=== PATIENT | male | born 1975 | race Caucasian/White ===

== ENCOUNTER 2016-12-19 20:01 | Emergency (ER) | payer MEDICARE, OTHER ==
[~2016-12-19] VITALS: Ht 172.7 cm; Wt 75.0 kg
[~2016-12-19 20:01] MED LIST: BUSP10 PO; IBUP600T26 PO; NEUR600T PO; QUET200 PO
--- NOTE | 2016-12-19 20:09 | PD ---
Physical Exam Time Seen by Provider: 20:07 Narrative 41 y/o male here s/p meth use. Complains of feelings of weakness. He also requests psychiatric evaluation for suicidal thoughts. Seen at triage desk. Awaiting bed placement. [facility] Medical Record Reviewed: Yes Supervised Visit with FORREST: Florian Dickens Dec 19, 2016 20:09
[2016-12-19 20:23] VITALS: BP 121/79; PULSE 103; RESP 16; TEMP 98.7; O2SAT 97
[2016-12-19 20:45] LABS: AMPHETAMINE, URINE POS (NEG); BARBITURATES, URINE NEG (NEG); COCAINE, URINE NEG (NEG)
== END 2016-12-19 23:40 | disposition left against medical advice (07) ==
LOC: NED 20:01
DX: R45.851 Suicidal ideations (principal); R53.1 Weakness; F15.10 Other stimulant abuse, uncomplicated; Z53.21 Procedure and treatment not carried out due to patient leaving prior to being seen by health care provider
CPT/HCPCS: 80307; 99281

== ENCOUNTER 2016-12-21 19:18 | Emergency (ER) | payer MEDICARE ==
[2016-12-21 19:21] VITALS: BP 111/75; PULSE 98; RESP 18; TEMP 99.5; O2SAT 98
[2016-12-21 22:01] VITALS: BP 108/71; PULSE 84; RESP 18; O2SAT 97
[2016-12-21 22:03] VITALS: TEMP 98.9
--- NOTE | 2016-12-21 22:05 | PD ---
HPI Chief Complaint: Pain: Acute or Chronic Time Seen by Provider: 21:58 Travel History International Travel<30 days: No Contact w/Intl Traveler<30days: No Traveled to known affect area: No History of Present Illness HPI Patient comes emergency Department requesting surgical intervention for his chronic neck pain. Patient states that he had an MRI done 2 years ago and was told that he needed to have fusion on his neck. Patient refused this as he was scared of the surgery. Patient states he's been self-medicating but is wanting to get it fixed now or prescription for narcotic pain medication. Patient denies any fevers, loss change in bowel or bladder, chest pain, shortness of breath, numbness or tingling anywhere, headache, or fevers. Patient denies any change in his neck pain states he is just wanting to get it took care of now. Patient has pain is achy like in nature without radiation. PFSH Past Medical History Cancer: No Cardiovascular Problems: Yes Diabetes: No Diminished Hearing: No Endocrine: No Gastrointestinal Disorders: Yes Genitourinary: No Headaches: Yes (ONCE A WEEK) Hypertension: Yes Immune Disorder: No Musculoskeletal: Yes Neurologic: Yes Psychiatric: No Reproductive: No Respiratory: No Immunizations Current: No Seizures: Yes Thyroid Disease: No Past Surgical History Neurologic Surgery: Yes ("BRAIN SURGERY" 2012) Other Surgery: Yes (unable to aassess) Social History Alcohol Use: Yes (6PK BEER DAILY; NONE IN 10 DAYS) Tobacco Use: Yes (1 PPD) Substance Use: Yes (DILAUDID) Allergies-Medications (Allergen,Severity, Reaction): Coded Allergies: No Known Allergies (Unverified , 12/21/16) Reported Meds & Prescriptions Reported Meds & Active Scripts Active No Active Prescriptions or Reported Medications Review of Systems Except as stated in HPI: all other systems reviewed are Neg Physical Exam Narrative GENERAL: Well-developed, well nourished, in no acute distress, and non-ill appearing. SKIN: Focused skin assessment warm and dry. HEAD: Atraumatic. Normocephalic. EYES: Pupils equal and round. EOMI. No scleral icterus. No injection or drainage. ENT: No nasal bleeding or discharge. Mucous membranes pink and moist. NECK: Trachea midline. No tenderness or crepitus over midline cervical spine. Supple. No nuclear rigidity. CARDIOVASCULAR: Radial pulses 2+, intact, equal bilaterally. Capillary refill less than 2 seconds. RESPIRATORY: No accessory muscle use. No respiratory distress. MUSCULOSKELETAL: No obvious deformities. No clubbing. No cyanosis. No edema. Full range of motion. Shoulder:FROM equal BL with passive flexion, extension, Abduction, Adduction, internal/external rotation, and pronation/supination. Sensation equal BL deltoid muscles. Pulses equal BL distal to injury. Capillary refill less than 2 seconds distal to injury and equal BL. FROM distal to injury and equal BL. Strength distal to injury equal BL. NV intact distal to injury equal BL. Flexion and extension of thumb equal BL. Equal strength and movement with abduction/adductions of BL fingers. Branch Lending Manager strength equal BL. Normal gait. NEUROLOGICAL: Awake and alert. No obvious cranial nerve deficits. Motor grossly within normal limits. Normal speech. PSYCHIATRIC: Appropriate mood and affect; insight and judgment normal. Data Data Last Documented VS Vital Signs Date Time Temp Pulse Resp B/P Pulse Ox O2 Delivery O2 Flow Rate FiO2 12/21/16 22:03 98.9 12/21/16 22:01 84 18 108/71 97 Room Air MDM Medical Decision Making Medical Screen Exam Complete: Yes Emergency Medical Condition: No Differential Diagnosis Acute on chronic neck pain, drug-seeking, other Narrative Course The patient presented complaining of neck pain. There was no history of recent fall or trauma. There was no evidence to support atypical cardiac/angina as an etiology. There is also no evidence to suggest vascular pathology such as TAA or carotid dissection. No fevers or other evidence to suspect infectious processes, abscess, osteomyelitis etc. The patients neurological exam is normal with normal motor and sensory. There is no paresthesias nor motor deficits reported, or found and no bowel or bladder incontinence or retention. I suspect the pain is mechanical in nature. Clinical suspicion, plan of care and management was discussed with the patient. The patient was instructed to follow up with their health care provider. The patient was also instructed to return if the pain worsened, changed, or developed weakness or bowel or bladder trouble. The patient agreed with plan. Patient in no obvious distress upon re-evaluation. Any questions/concerns in reference to patient diagnosis/condition discussed and clarified prior to patient's discharge. Reinforced sheer importance of close follow up with patient 's primary physician or primary care clinic. Instructed patient to return to ED immediately, if symptoms return/worsen. Pt showed understanding of above instructions. Further instructions and recommendations were detailed in discharge paperwork. Pt ambulated without difficulty out of ED at discharge. Diagnosis Primary Impression: Chronic neck pain Referrals: Orthopaedic Surgeon Primary Care Physician Patient Instructions: Chronic Neck Pain (DC), General Instructions Additional Instructions: Follow-up with your primary care physician and/or orthopedic 3-5 days for reevaluation. Use [id number] Tylenol and/or ibuprofen as needed for pain. Follow instructions on the packaging. Return to the emergency department if symptoms get worse. Scripts No Active Prescriptions or Reported Meds Disposition: 01 DISCHARGE HOME Condition: Stable Hayden Chu Dec 21, 2016 22:05
== END 2016-12-21 22:16 | disposition home or self-care (01) ==
LOC: NEPD 19:18
DX: M54.2 Cervicalgia (principal); G89.29 Other chronic pain
CPT/HCPCS: 99282

== ENCOUNTER 2016-12-23 20:22 | Emergency (ER) | payer MEDICARE ==
[~2016-12-23] VITALS: Ht 172.7 cm; Wt 60.0 kg
[2016-12-23 20:28] VITALS: BP 108/72; PULSE 84; RESP 16; TEMP 98; O2SAT 98
--- NOTE | 2016-12-23 22:52 | PD ---
HPI Chief Complaint: Abdominal Pain Time Seen by Provider: 22:49 Travel History International Travel<30 days: No Contact w/Intl Traveler<30days: No Traveled to known affect area: No History of Present Illness HPI C/O ABD PAIN, DIFFUSE, CRAMPY/SHARP,4/10, NONRADIATING, ALSO DENIES N/V/D/ FEVER.... PFSH Past Medical History Cancer: No Cardiovascular Problems: Yes Diabetes: No Diminished Hearing: No Endocrine: No Gastrointestinal Disorders: Yes Genitourinary: No Headaches: Yes (ONCE A WEEK) Hypertension: Yes Immune Disorder: No Musculoskeletal: Yes Neurologic: Yes Psychiatric: No Reproductive: No Respiratory: No Immunizations Current: No Seizures: Yes Thyroid Disease: No Past Surgical History Neurologic Surgery: Yes ("BRAIN SURGERY" 2012) Social History Alcohol Use: Yes (6PK BEER DAILY) Tobacco Use: Yes (1 PPD) Substance Use: Yes (hx of DILAUDID) Allergies-Medications (Allergen,Severity, Reaction): Coded Allergies: No Known Allergies (Unverified , 12/23/16) Reported Meds & Prescriptions Reported Meds & Active Scripts Active Zofran Odt (Ondansetron Odt) 4 Mg Tab 4 Mg SL Q6HR PRN Ultram (Tramadol HCl) 50 Mg Tab 50 Mg PO Q4H PRN Review of Systems Except as stated in HPI: all other systems reviewed are Neg Gastrointestinal: Positive: Abdominal Pain Physical Exam Narrative GENERAL: SKIN: Warm and dry. HEAD: Atraumatic. Normocephalic. EYES: Pupils equal and round. No scleral icterus. No injection or drainage. ENT: No nasal bleeding or discharge. Mucous membranes pink and moist. NECK: Trachea midline. No JVD. CARDIOVASCULAR: Regular rate and rhythm. RESPIRATORY: No accessory muscle use. Clear to auscultation. Breath sounds equal bilaterally. GASTROINTESTINAL: Abdomen soft, MILD RUQ AREA -tender, nondistended. NEGATIVE COURTNEY'S SIGN MUSCULOSKELETAL: Extremities without clubbing, cyanosis, or edema. No obvious deformities. NEUROLOGICAL: Awake and alert. No obvious cranial nerve deficits. Motor grossly within normal limits. Five out of 5 muscle strength in the arms and legs. Normal speech. PSYCHIATRIC: Appropriate mood and affect; insight and judgment normal. Data Data Last Documented VS Orders Ct Abd/Pel W/O Iv Contrast (12/23/16 22:47) [facility] Medical Decision Making Medical Screen Exam Complete: Yes Emergency Medical Condition: Yes Medical Record Reviewed: Yes Differential Diagnosis SBO V FREE AIR V RENAL STONES V PANCREATITIS Narrative Course CT DOES NOT SHOW ANY EVIDENCE OF SBO/FREE AIR/KIDNEY STONES NOR ANY PANCREATITIS Diagnosis Primary Impression: CHOLELITHIASIS Patient Instructions: Gallstones (ED), General Instructions Scripts Ondansetron Odt (Zofran Odt)4 Mg Tab4 Mg SL Q6HR PRN (Nausea/Vomiting) #12 TAB Prov:Robel Keen MD 12/23/16 Tramadol (Ultram)50 Mg Tab50 Mg PO Q4H PRN (PAIN) #28 TAB Prov:Robel Keen MD 12/23/16 Disposition: DISCHARGE HOME Condition: Stable Robel Keen MD Dec 23, 2016 22:52 Tramadol (Ultram)50 Mg Tab50 Mg PO Q4H PRN (PAIN) #28 TAB Prov:Robel Keen MD 12/23/16 Disposition: DISCHARGE HOME Condition: Stable Robel Keen MD Dec 23, 2016 22:52
--- NOTE | 2016-12-23 23:30 | RADRPT ---
EXAM DATE/TIME: 12/23/2016 22:57 [facility] COMPARISON: No previous studies available for comparison. INDICATIONS : Diffuse abdomen pain with cramping. ORAL CONTRAST: No oral contrast ingested. RADIATION DOSE: 4.90 CTDIvol (mGy) MEDICAL HISTORY : Cardiovascular disease. Hypertension. Seizures. SURGICAL HISTORY : Craniotomy. ENCOUNTER: Initial ACUITY: 1 day PAIN SCALE: 10/10 LOCATION: Bilateral abdomen TECHNIQUE: Volumetric scanning of the abdomen and pelvis was performed. Using automated exposure control and ad justment of the mA and/or kV according to patient size, radiation dose was kept as low as reasonably achievable to obtain optimal diagnostic quality images. DICOM format image data is available electro nically for review and comparison. The lack of IV contrast limits the diagnosis for certain organ pa thology. FINDINGS: LOWER LUNGS: The visualized lower lungs are clear. LIVER: Homogeneous density without lesion. There appears to be some fatty infiltration of the liver. The li erlinda appears to be enlarged measuring 20 cm. There is no dilation of the biliary tree. A few calcified gallstones are seen in a contracted gallbladder. No surrounding inflammatory changes.. SPLEEN: Normal size without lesion. PANCREAS: Within normal limits. KIDNEYS: Normal in size and shape. There is no mass or hydronephrosis. Faint tiny 2 mm calcification lower po le left kidney. Otherwise, no other definite calcified renal stones are demonstrated. The ureters are nondilated. ADRENAL GLANDS: Within normal limits. VASCULAR: There is no aortic aneurysm. BOWEL/MESENTERY: The stomach, small bowel, and colon demonstrate no acute abnormality. There is no free intraperitone al air or fluid. The appendix is unremarkable. There is stool in the colon. No inflammatory changes. ABDOMINAL WALL: Within normal limits. RETROPERITONEUM: There is no lymphadenopathy. BLADDER: No wall thickening or mass. REPRODUCTIVE: Within normal limits. INGUINAL: There is no lymphadenopathy or hernia. MUSCULOSKELETAL: Within normal limits for patient age. CONCLUSION: 1. There are several small gallstones in the gallbladder. The gallbladder is contracted. No biliary t ract obstruction. No adjacent inflammatory changes. There appears to be some fatty infiltration of th e liver which is enlarged.2. Faint 2 mm calcification lower pole left kidney not causing obstruction. 3. Otherwise, unremarkable exam for patient's age. Clyde Burton MD on December 23, 2016 at 23:24 Board Certified Radiologist. This report was verified electronically.
[2016-12-23] MEDS ORDERED: ULTR50TA5 PO (23:32)
[2016-12-23] MEDS ORDERED: ZOFR4TAB3 SL (23:32)
== END 2016-12-24 00:23 | disposition home or self-care (01) ==
LOC: NEPD 20:22
DX: K80.20 Calculus of gallbladder without cholecystitis without obstruction (principal)
CPT/HCPCS: 74176; 99284

== ENCOUNTER 2016-12-25 12:39 | Emergency (ER) | payer MEDICARE ==
[~2016-12-25] VITALS: Ht 172.7 cm; Wt 60.0 kg
[~2016-12-25 12:39] MED LIST changes: -BUSP10 PO; -IBUP600T26 PO; -NEUR600T PO; -QUET200 PO; +ULTR50TA5 PO; +ZOFR4TAB3 SL
[2016-12-25 12:41] VITALS: BP 113/69; PULSE 104; RESP 20; TEMP 99.1; O2SAT 97
--- NOTE | 2016-12-25 14:52 | PD ---
HPI Chief Complaint: Alcohol/Drug Intoxication Time Seen by Provider: 14:52 Travel History International Travel<30 days: No Contact w/Intl Traveler<30days: No Traveled to known affect area: No History of Present Illness HPI 41 YO M presents to the ED requesting detox from IV heroin and chronic alcohol use. Patient states last heroin use was early this morning, drank alcohol just before arrival. He is unable to quantify his alcohol use but states that "if I can get it I'll drink it." Denies suicidal or homicidal ideation. He endorses mild nausea, malaise, sweats which he states are "normal withdrawal symptoms." He endorses chronic neck pain secondary to a distant surgery. PFSH Past Medical History Cancer: No Cardiovascular Problems: Yes Diabetes: No Diminished Hearing: No Endocrine: No Gastrointestinal Disorders: Yes Genitourinary: No Headaches: Yes (ONCE A WEEK) Hypertension: Yes Immune Disorder: No Musculoskeletal: Yes Neurologic: Yes Psychiatric: No Reproductive: No Respiratory: No Immunizations Current: No Seizures: Yes Thyroid Disease: No Past Surgical History Neurologic Surgery: Yes ("BRAIN SURGERY" 2012) Social History Alcohol Use: Yes (6PK BEER DAILY) Tobacco Use: Yes (1 PPD) Substance Use: Yes (hx of DILAUDID) Allergies-Medications (Allergen,Severity, Reaction): Coded Allergies: No Known Allergies (Unverified , 12/23/16) Reported Meds & Prescriptions Reported Meds & Active Scripts Active Zofran Odt (Ondansetron Odt) 4 Mg Tab 4 Mg SL Q6HR PRN Ultram (Tramadol HCl) 50 Mg Tab 50 Mg PO Q4H PRN Review of Systems Except as stated in HPI: all other systems reviewed are Neg Physical Exam Narrative GENERAL: Well-nourished, well-developed white male in no acute distress. PSYCHIATRIC: No delusional thought processes. No hallucinations. Cooperative. Forthright. SKIN: Focused skin assessment warm/dry. No piloerection. Multiple injection sites in the bilateral antecubital spaces and the right upper arm. No signs of infection. HEAD: Normocephalic. EYES: No scleral icterus. No injection or drainage. PERRLA. NECK: Supple, trachea midline. No JVD or lymphadenopathy. CARDIOVASCULAR: Regular rate and rhythm without murmurs, gallops, or rubs. RESPIRATORY: Breath sounds clear and equal bilaterally. No accessory muscle use. GASTROINTESTINAL: Abdomen soft, non-tender, nondistended. Active bowel sounds. MUSCULOSKELETAL: No cyanosis, or edema. Ambulatory with a normal gait. BACK: Nontender without obvious deformity. No CVA tenderness. Data Data Last Documented VS Vital Signs Date Time Temp Pulse Resp B/P Pulse Ox O2 Delivery O2 Flow Rate FiO2 12/25/16 12:41 99.1 104 20 113/69 97 Room Air Orders MDM Medical Decision Making Medical Screen Exam Complete: Yes Emergency Medical Condition: Yes Differential Diagnosis IV drug abuse versus substance abuse versus chronic alcohol use versus acute alcohol intoxication versus withdrawal versus other Narrative Course 41 YO M presents to the ED requesting detox from IV heroin and chronic alcohol use. Patient states last heroin use was early this morning, drank alcohol just before arrival. Denies SI or HI. He endorses mild nausea, malaise, sweats which he states are "normal withdrawal symptoms." Vitals reviewed. On physical exam the patient is well-appearing. No signs of active withdrawal. There are several injection sites of bilateral forearms without signs of infection. Review of the records reveals patient was seen multiple times this month. Certainly no reason for admission to the hospital today. I discussed the patient, evaluation and plan with Dr. Dominguez. The patient was provided outpatient detox resources, instructed to follow-up with Nate Pr[facility]ak[facility]. He is stable and discharged home. Diagnosis Primary Impression: IV drug abuse Additional Impression: Chronic alcohol abuse Referrals: [facility] Patient Instructions: Abuse of Alcohol (ED), General Instructions, Medical Clearance for Substance Abuse Treatment (ED) Additional Instructions: Rest, hydrate. Seek outpatient treatment for your chronic drug and alcohol use. Return to the ED for any urgent or emergent medical condition. Disposition: 01 DISCHARGE HOME Condition: Stable Sheri Lerner Dec 25, 2016 14:52
== END 2016-12-25 15:50 | disposition home or self-care (01) ==
LOC: NEPD 12:39
DX: F19.10 Other psychoactive substance abuse, uncomplicated (principal); F10.10 Alcohol abuse, uncomplicated; R11.0 Nausea; R53.81 Other malaise; M54.2 Cervicalgia; R56.9 Unspecified convulsions; I10 Essential (primary) hypertension; F17.200 Nicotine dependence, unspecified, uncomplicated; Z79.899 Other long term (current) drug therapy
CPT/HCPCS: 99281